=== PATIENT | female | born 1990 | race African-American/Black ===

== ENCOUNTER → 2017-10-10 | Outpatient (CLI) | payer OTHER ==
[~2017-10-10] VITALS: Ht 177.8 cm; Wt 77.3 kg
[~2017-10-10] MED LIST: ENDOCET 5-3251 EACH PO; FIORICET 50-301 EACH PO; FLEXERIL10 MG PO; IBUPROFEN800 MG PO; LEXAPRO20 MG PO; MACROBID100 MG PO; MAXALT10 MG PO; MOTRIN600 MG PO; Motrin PO; PRENATAL TABLE1 EAC3 PO; SEROQUEL100 MG PO; SEROQUEL12.5 MG PO; TOPAMAX50 MG PO; XANAX0.5 MG PO
[2017-10-10 08:10] VITALS: BP 120/65
== END | disposition home or self-care (01) ==
LOC: IVINF 10-09 14:00
DX: O02.1 Missed abortion (principal); Z67.11 Type A blood, Rh negative
CPT/HCPCS: 96372; J2790